=== PATIENT | male | born 1960 | race Caucasian/White ===

== ENCOUNTER 2023-05-15 17:50 | Emergency (ER) | payer OTHER, SELFPAY ==
[2023-05-15 17:57] VITALS: BP 179/116; PULSE 69; RESP 17; TEMP 36.7; O2SAT 97; BMI 36.0
--- NOTE | 2023-05-15 17:57 | XR_ITS ---
[facility] [place] [id number] Patient Name: ZULLY MAGALLON MRN: [id number] date: 1960 Sex: M Assigned Patient Location: ED.MAIN Current Patient Location: Accession/Order Number: [id number] Exam Date: 05/15/2023 18:00 Report Date: 05/15/2023 19:22 At the request of: SNEHAL SANTOS Procedure: XR ankle ERIKA min 3V STUDY: XR ankle ERIKA min 3V, [id number] HISTORY: Fall COMPARISON: None FINDINGS: Right ankle: Transverse oriented fracture of the most distal tip of the lateral malleolus which demonstrates 0.7 mm of distraction. No significant malalignment. There is adjacent soft tissue swelling. Small curvilinear calcification near the tip of the medial malleolus suspect for a lateral calcaneal avulsion fracture. No other acute fracture demonstrated. No lucency of the talar dome. Severe calcification/enthesopathy at the Achilles insertion. Small plantar calcaneal spur. Mild osteophytosis of the mid foot. Left ankle: Obliquely oriented fracture of the distal metadiaphysis of the left fibula at the level of the syndesmotic ligaments which demonstrates minimal lateral displacement of the distal fracture with respect to the proximal by approximately 1 mm. There is adjacent soft tissue swelling. No other acute fracture demonstrated. No lucent lesion of the talar dome. Mild Achilles enthesopathy and small plantar calcaneal spur. Mild osteoarthritis of the midfoot. IMPRESSION: 1. Minimally displaced Pollock type B fracture of the left distal fibula. 2. Minimally distracted Pollock type a fracture of the right distal fibula. 3. Small avulsion fracture of the medial aspect of the right calcaneus near the tip of the medial malleolus. Electronically authenticated by: LAUREN HOBSON Date: 05/15/2023 19:22
--- NOTE | 2023-05-15 17:58 | ED_ITS ---
HPI - Fall General Chief Complaint: Extremity Injury, Lower Stated Complaint: Lower Extremity Injury Time Seen by Provider: 05/15/23 17:53 History of Present Illness HPI Narrative: patient is a 62-year-old male who presents to the emergency department for the evaluation of injury to the bilateral ankles. Patient states around noon he was unloading a box from [place] truck [place] when he twisted his ankles. He reports pain in both ankles, he states the left ankle is much worse. He is able to bear some weight on the right ankle but is using a cane to help with walking on the left lower extremity. Most of his pain is in the left medial ankle and diffusely in the right medial ankle. He denies head injury, loss of consciousness, neck or back pain. No medications taken prior to arrival for symptoms. Related Data Previous Rx's Medication Instructions Recorded methocarbamol 750 mg tablet 750 mg PO TID PRN pain #20 tabs 05/15/23 ondansetron 4 mg disintegrating 4 mg PO Q6H PRN nausea and 05/15/23 tablet vomiting #12 tabs oxycodone-acetaminophen 5 mg-325 1 tab PO Q4H PRN pain #20 tabs 05/15/23 mg tablet (Percocet) Allergies Allergy/AdvReac Type Severity Reaction Status Date / Time No Known Drug Allergies Allergy Verified 05/15/23 17:55 Review of Systems ROS Constitutional Denies: fever or chills Ears, nose, mouth, and throat Denies: throat pain or neck pain Respiratory Denies: shortness of breath or cough Gastrointestinal Denies: nausea or vomiting Musculoskeletal Reports: extremity pain, extremity swelling and joint pain; Denies: back pain or neck pain Integumentary/Breast Denies: rash Neurological Denies: headache Hematologic/Lymphatic Denies: easy bruising PFSH PFSH Social History Smoking status: Current every day smoker Exam Narrative Exam Narrative: Gen.: Awake, alert, in no distress Head: Normocephalic, atraumatic ENT: Moist mucous membranes, no evidence of head, facial or dental injury. C- spine nontender Respiratory: No respiratory distress Extremities: diffuse moderate edema of the left ankle, minimal edema noted diffusely of the right ankle. Tenderness of the medial and anterior left ankle with no obvious deformity. No bony tenderness of the bilateral knees or proximal tibias. Normal flexion and extension of the toes of the bilateral feet with 2+ DP pulses bilaterally. Psych: Normal mood and affect Neuro: No focal neuro deficit Skin: Warm, dry, intact Constitutional Vital Signs, click to edit/add: Last Vital Signs Temp 98.1 F 05/15/23 17:57 Pulse 64 05/15/23 18:59 Resp 16 05/15/23 18:59 BP 150/84 H 05/15/23 18:59 Pulse Ox 96 05/15/23 18:59 O2 Del Method Room Air 05/15/23 18:59 Course Vital Signs Vital signs: Vital Signs Temperature 98.1 F 05/15/23 17:57 Pulse Rate 69 05/15/23 17:57 Respiratory Rate 17 05/15/23 17:57 Blood Pressure 179/116 H 05/15/23 17:57 Pulse Oximetry 97 05/15/23 17:57 Oxygen Delivery Method Room Air 05/15/23 17:57 Temperature 98.1 F 05/15/23 17:57 Pulse Rate 64 05/15/23 18:59 Respiratory Rate 16 05/15/23 18:59 Blood Pressure 150/84 H 05/15/23 18:59 Pulse Oximetry 96 05/15/23 18:59 Oxygen Delivery Method Room Air 05/15/23 18:59 MDM - Fall MDM Narrative Medical decision making narrative: x-rays of the bilateral ankles show that the patient has a small distal fibular avulsion fracture of the right ankle and calcaneus. He is placed in an Arcadio wrap and Aircast for this the avulsion appears to be of a bone spur. There is no large calcaneal fracture. left ankle shows a spiral distal fibular fracture. Mortise is intact. Patient was placed in a posterior splint with stirrup. He was encouraged not to bear any weight on the left lower extremity. He would like to try to go home and manages an outpatient with orthopedics/podiatry follow-up. He was given the option of admission for pain control and further evaluation, he would like to try to go home tonight. He was made aware that he can return to the Emergency Room at any time if he is not able to function. He was given prescriptions for both a walker and knee scooter. He is strongly encouraged to keep the ankles elevated, follow-up closely with podiatry and return to the Emergency Room if symptoms change or worsen. Medical Records Attestation: I reviewed the patient's medical records. Discharge Plan Discharge Chief Complaint: Extremity Injury, Lower Clinical Impression: Closed left fibular fracture, Closed avulsion fracture of distal end of right fibula, Bilateral ankle fractures, Acute bilateral ankle pain Patient Disposition: Home, Self-Care Time of Disposition Decision: 19:26 Condition: Good Prescriptions / Home Meds: New oxycodone-acetaminophen [Percocet] 5-325 mg tablet 1 tab PO Q4H PRN (Reason: pain) Qty: 20 0RF Rx Instructions: DX: S82.402A methocarbamol 750 mg tablet 750 mg PO TID PRN (Reason: pain) Qty: 20 0RF ondansetron 4 mg tablet,disintegrating 4 mg PO Q6H PRN (Reason: nausea and vomiting) Qty: 12 0RF Instructions: Ankle Fracture (ED), Avulsion Fracture (ED) Additional Instructions: Weightbearing as tolerated for your right ankle; Do not bear weight on your left ankle Elevate and ice the ankles, follow up with Dr. Murray Stand Alone Forms: Portal Instructions Referrals: Kendrick Murray DPM [Physician] - As soon as possible Shaikh Quijano MD [Primary Care Provider] - 1 week
[2023-05-15] MEDS: OXYCODONE HCL/ACETAMINOPHEN 5MG/325MG 1 TAB PO (18:14)
[2023-05-15 18:59] VITALS: BP 150/84; PULSE 64; RESP 16; O2SAT 96
[2023-05-15] MEDS: OXYCODONE HCL/ACETAMINOPHEN 5MG/325MG 2 TAB PO (19:41)
== END 2023-05-15 19:50 | disposition home or self-care (01) ==
PROVIDERS: Emergency Provider Emergency Medicine; PCP Internal Medicine
DX: S82.832A Other fracture of upper and lower end of left fibula, initial encounter for closed fracture (principal); S82.831A Other fracture of upper and lower end of right fibula, initial encounter for closed fracture; S92.001A Unspecified fracture of right calcaneus, initial encounter for closed fracture; M25.572 Pain in left ankle and joints of left foot; M25.571 Pain in right ankle and joints of right foot; F17.210 Nicotine dependence, cigarettes, uncomplicated; X50.1XXA Overexertion from prolonged static or awkward postures, initial encounter
CPT/HCPCS: 29515; 73610; 99283

== ENCOUNTER 2023-05-18 09:43 | Outpatient (OUT) | payer OTHER, SELFPAY ==
--- NOTE | 2023-05-18 | XR_ITS ---
[address] [address] Patient Name: ZULLY MAGALLON MRN: [id number] date: 1960 Sex: M Assigned Patient Location: [facility] Current Patient Location: RAD Accession/Order Number: [id number] Exam Date: 05/18/2023 10:00 Report Date: 05/18/2023 21:05 At the request of: ESTEBAN THAKUR Procedure: XR foot ERIKA min 3V EXAMINATION: XR foot ERIKA min 3V, XR ankle ERIKA min 3V HISTORY: BILATERAL FOOT PAIN COMPARISON: 05/15/2023 FINDINGS: RIGHT FINDINGS: BONES: No new fracture or dislocation. Again demonstrated is a transverse fracture across the distal tip of the fibula. Contour deformity of the tip of the medial malleolus consistent with a healing fracture. SOFT TISSUES: Negative. No visible soft tissue swelling. OTHER: Negative. LEFT FINDINGS: BONES: No new fracture or dislocation. Stable oblique fracture through the distal metaphysis of the fibula at the syndesmosis SOFT TISSUES: Negative. No visible soft tissue swelling. OTHER: Negative. XR/XR foot ERIKA min 3V IMPRESSION: RIGHT CONCLUSION: Stable fibular fracture LEFT CONCLUSION: Stable fibular fracture Electronically authenticated by: KOREY DOSHI Date: 05/18/2023 21:05
--- NOTE | 2023-05-18 | XR_ITS ---
[address] [address] Patient Name: ZULLY MAGALLON MRN: [id number] date: 1960 Sex: M Assigned Patient Location: [facility] Current Patient Location: RAD Accession/Order Number: [id number] Exam Date: 05/18/2023 09:45 Report Date: 05/18/2023 21:05 At the request of: ESTEBAN THAKUR Procedure: XR ankle ERIKA min 3V EXAMINATION: XR foot ERIKA min 3V, XR ankle ERIKA min 3V HISTORY: BILATERAL FOOT PAIN COMPARISON: 05/15/2023 FINDINGS: RIGHT FINDINGS: BONES: No new fracture or dislocation. Again demonstrated is a transverse fracture across the distal tip of the fibula. Contour deformity of the tip of the medial malleolus consistent with a healing fracture. SOFT TISSUES: Negative. No visible soft tissue swelling. OTHER: Negative. LEFT FINDINGS: BONES: No new fracture or dislocation. Stable oblique fracture through the distal metaphysis of the fibula at the syndesmosis SOFT TISSUES: Negative. No visible soft tissue swelling. OTHER: Negative. XR/XR ankle ERIKA min 3V IMPRESSION: RIGHT CONCLUSION: Stable fibular fracture LEFT CONCLUSION: Stable fibular fracture Electronically authenticated by: KOREY DOSHI Date: 05/18/2023 21:05
== END 2023-05-18 09:44 | disposition home or self-care (01) ==
LOC: RAD 09:43
PROVIDERS: PCP Internal Medicine; Visit Provider Podiatrist Foot & Ankle Surgery
DX: M25.572 Pain in left ankle and joints of left foot (principal); M25.571 Pain in right ankle and joints of right foot
CPT/HCPCS: 73610; 73630

== ENCOUNTER 2023-06-01 09:57 | Outpatient (OUT) | payer OTHER, SELFPAY ==
--- NOTE | 2023-06-01 | XR_ITS ---
The [address] [address] Patient Name: ZULLY MAGALLON MRN: [id number] date: 1960 Sex: M Assigned Patient Location: [facility] Current Patient Location: Accession/Order Number: [id number] Exam Date: 06/01/2023 10:11 Report Date: 06/02/2023 17:15 At the request of: ESTEBAN THAKUR Procedure: XR ankle ERIKA min 3V Exam: Radiographs: XR ankle ERIKA min 3V Reason for exam: BILATERAL ANKLE PAIN Comparison: Plain films dated 05/18/2023 XR/XR ankle ERIKA min 3V IMPRESSION: Acute nondisplaced distal right fibula metaphysis fracture with mild associated soft tissue swelling. Prominent Achilles calcaneal spur. Mild tibiotalar joint degenerative change. Remainder of the right ankle radiographs is unremarkable. Acute mildly displaced distal left fibula metaphysis fracture with associated soft tissue swelling. Small Achilles calcaneal spur. Mild tibiotalar joint degenerative change. Remainder of the left ankle radiographs is unremarkable. Electronically authenticated by: SARIKA ORTIZ Date: 06/02/2023 17:15
== END 2023-06-01 09:58 | disposition home or self-care (01) ==
LOC: RAD 09:57
PROVIDERS: PCP Internal Medicine; Visit Provider Podiatrist Foot & Ankle Surgery
DX: S82.65XA Nondisplaced fracture of lateral malleolus of left fibula, initial encounter for closed fracture (principal); M25.571 Pain in right ankle and joints of right foot
CPT/HCPCS: 73610

== ENCOUNTER 2023-06-22 09:39 | Outpatient (OUT) | payer OTHER, SELFPAY ==
--- NOTE | 2023-06-22 | XR_ITS ---
[facility] [place] [id number] Patient Name: ZULLY MAGALLON MRN: [id number] date: 1960 Sex: M Assigned Patient Location: [facility] Current Patient Location: Accession/Order Number: [id number] Exam Date: 06/22/2023 09:50 Report Date: 06/23/2023 00:32 At the request of: ESTEBAN THAKUR Procedure: XR ankle ERIKA min 3V EXAM: XR ankle ERIKA min 3V HISTORY: BILAT ANKLE PAIN COMPARISON: None. TECHNIQUE: 6 views of bilateral ankles FINDINGS: Healing fractures of the bilateral distal fibula is seen with mild callus formation seen involving the distal left fibula. No new fracture is seen. Joint alignment is normal. Joint spaces are preserved. Bilateral posterior calcaneal spur is seen. XR/XR ankle ERIKA min 3V IMPRESSION: Healing fractures of the bilateral distal fibula Electronically authenticated by: KALPESH VASQUEZ Date: 06/23/2023 00:32
== END 2023-06-22 09:40 | disposition home or self-care (01) ==
LOC: RAD 09:40
PROVIDERS: PCP Internal Medicine; Visit Provider Podiatrist Foot & Ankle Surgery
DX: M25.571 Pain in right ankle and joints of right foot (principal); M25.572 Pain in left ankle and joints of left foot
CPT/HCPCS: 73610

== ENCOUNTER 2023-07-28 09:52 | Outpatient (OUT) | payer OTHER, SELFPAY ==
--- NOTE | 2023-07-28 | XR_ITS ---
The [address] [address] Patient Name: ZULLY MAGALLON MRN: [id number] date: 1960 Sex: M Assigned Patient Location: RAD Current Patient Location: RAD Accession/Order Number: [id number] Exam Date: 07/28/2023 09:55 Report Date: 07/28/2023 11:06 At the request of: ESTEBAN THAKUR Procedure: XR ankle LT min 3V PROCEDURE: XR ankle LT min 3V HISTORY: LEFT ANKLE PAIN COMPARISON: XR ankle bilateral 06/22/2023 FINDINGS: BONES:Oblique fracture of the distal fibula extending cephalad from the level of the ankle joint. Mild callus formation along the margins. Intact ankle joint. SOFT TISSUES:No visible soft tissue swelling. EFFUSION:None visible. OTHER: Negative. XR/XR ankle LT min 3V IMPRESSION: 1. Stable, normal alignment of distal fibula fracture with evidence of early bone healing. Electronically authenticated by: CONCEPCION BORJA Date: 07/28/2023 11:06
--- OUTSIDE RECORDS SUMMARY | 2023-07-28 09:55 | XMS_ITS | CCD ---
Author Name Unknown Address [address] [facility] [address] [place] [address] Organization [facility] Care Team Providers Care Production Assistant Name Role Phone PHYSICIAN, DEFAULT Unavailable Unavailable PHYSICIAN, DEFAULT Unavailable Unavailable AMBURN, AUBREY Unavailable Unavailable PHYSICIAN, DEFAULT Unavailable Unavailable PHYSICIAN, DEFAULT Unavailable Unavailable AMBURN, AUBREY Unavailable Unavailable Olexa, Kenny Unavailable ODELL GAY Consulting Unavailable FAWWAD, PINA H Primary Care Unavailable OLEXA, KENNY Admitting Unavailable OLEXA, KENNY Attending Unavailable OLEXA, KENNY Consulting Unavailable VALERI QUINTERO Consulting Unavailable FAWWAD, PINA H Primary Care Unavailable OLEXA, KENNY Admitting Unavailable OLEXA, KENNY Attending Unavailable OLEXA, KENNY Consulting Unavailable FAWWAD, PINA H Admitting Unavailable FAWWAD, PINA H Attending Unavailable FAWWAD, PINA H Primary Care Unavailable CARLOSEBDR CONCEPCION SANCHEZ Consulting Unavailable FAWWAD, PINA H Consulting Unavailable OLEXA, KENNY Admitting Unavailable FAWWAD, PINA H Primary Care Unavailable DR CONCEPCION BORJA Consulting Unavailable OLEXA, KENNY Attending Unavailable OLEXA, KENNY Consulting Unavailable OLEXA, KENNY Consulting Unavailable FAWWAD, PINA H Primary Care Unavailable OLEXA, KENNY Admitting Unavailable OLEXA, KENNY Attending Unavailable FAWWAD, PINA H Admitting Unavailable DR CONCEPCION BORJA Consulting Unavailable FAWWAD, PINA H Attending Unavailable FAWWAD, PINA H Primary Care Unavailable FAWWAD, PINA H Consulting Unavailable ALEX TORRES Consulting Unavailable FAWWAD, PINA H Primary Care Unavailable OLEXA, KENNY Admitting Unavailable OLEXA, KENNY Attending Unavailable OLEXA, KENNY Consulting Unavailable MK DENTON Attending Unavailable FAWWAD, PINA Attending Unavailable Medications Current Medications Medication Drug Class(es) Dates Sig (Normalized) Sig (Original) acetaminophen 325 mg / HYDROcodone bitartrate 5 mg oral tablet (7 sources) Opioid Agonist Start: 07-14-2021 take 1 tablet by mouth every four hours as needed for pain HYDROcodone-Aceta minophen 5-325 MG 1 tablet as needed for pain Orally up to very 4 hrs for 5 days Aug, Active Start: 07-14-2021 Aspir-81 (7 sources) Aspir-81 Active atenolol 25 mg oral tablet (7 sources) beta-Adrenergic Katelynn take 1 tablet by mouth once daily Atenolol 25 MG 1 tablet Orally Once a day Active atorvastatin 40 mg oral tablet (7 sources) HMG-CoA Reductase Inhibitor take 1 tablet by mouth every twenty-four hours Atorvastatin Calcium 40 MG 1 tablet Orally Once a day Active Green Tea Extract (7 sources) Green Tea Active lisinopril 20 mg oral tablet (7 sources) Angiotensin Converting Enzyme Inhibitor take 1 tablet by mouth every twenty-four hours Lisinopril 20 MG 1 tablet Orally Once a day Active Multivitamin preparation (7 sources) Multivitamin Act salma [place] 3 (7 sources) [place] 3 Active omeprazole 20 mg delayed release oral capsule (7 sources) Proton Pump Inhibitor take 1 capsule by mouth once daily Omeprazole 20 MG 1 capsule 30 minutes before morning meal Orally Once a day Active Problems Active Problems Problem Classification Problem Date Documented Date Episodic/Chronic Coronary atherosclerosis and other heart disease (6 sources) Old myocardial infarction; Translations: [Atherosclerotic heart disease of saxman coronary artery without angina pectoris] Onset: 09-30-2021 Chronic Disorders of lipid metabolism (2 sources) Mixed hyperlipidemia; Translations: [Mixed hyperlipidemia] Onset: 02-01-2023 Chronic Esophageal disorders (1 source) Gastro-esophageal reflux disease without esophagitis; Translations: [GERD WITHOUT ESOPHAGITIS] Onset: 08-26-2021 Chronic Essential hypertension (3 sources) Essential (primary) hypertension; Translations: [ESSENTIAL PRIMARY HYPERTENSION] Onset: 09-30-2021 Chronic Osteoarthritis (16 sources) Osteoarthrosis of the carpometacarpal joint of the thumb; Translations: [Unilateral primary osteoarthritis of first carpometacarpal joint, left hand] Onset: 04-24-2021 Resolved: 07-29-2021 Chronic Other nervous system disorders (7 sources) Carpal tunnel syndrome of left wrist; Translations: [Carpal tunnel syndrome, left upper limb] Chronic Other nervous system disorders (7 sources) Carpal tunnel syndrome; Translations: [Carpal tunnel syndrome, unspecified upper limb] Chronic Other nervous system disorders (9 sources) Carpal tunnel syndrome, left upper limb; Translations: [Carpal tunnel syndrome of left wrist G56.02] Onset: 04-24-2021 Resolved: 09-15-2021 Chronic Other nervous system disorders (6 sources) Carpal tunnel syndrome of right wrist; Translations: [Carpal tunnel syndrome, right upper limb] Chronic Other nervous system disorders (7 sources) Carpal tunnel syndrome, right upper limb; Translations: [CARPAL TUNNEL SYND RIGHT UPPER LIMB] Onset: 07-01-2021 Resolved: 09-15-2021 Chronic Other non-traumatic joint disorders (4 sources) Pain in left knee; Translations: [PAIN IN LEFT KNEE] Onset: 02-02-2022 Episodic Substance-related disorders (7 sources) Nicotine dependence, cigarettes, uncomplicated; Translations: [Nicotine dependence, unspecified, uncomplicated] Onset: 04-17-2021 Chronic Unclassified (1 source) CONTACT W/AND (SUSP) EXPOS COVID-19; Translations: [CONTACT W/AND (SUSP) EXPOS COVID-19] Onset: 08-26-2021 Past or Other Problems Problem Classification Problem Date Documented Da te Episodic/Chronic Coronary atherosclerosis and other heart disease (1 source) Presence of coronary angioplasty implant and graft; Translations: [PRESENCE COR ANGPLSTY IMPLANT AND GRAFT] Onset: 09-30-2021 Episodic Other aftercare (2 sources) Encounter for removal of sutures Onset: 07-29-2021 Resolved: 09-15-2021 Episodic Other aftercare (1 source) care home (current) use of aspirin; Translations: [INTERMEDIATE CURRENT USE OF ASPIRIN] Onset: 08-26-2021 Episodic Other aftercare (1 source) Other fdc (current) drug therapy; Translations: [OTH ARC CUTTER PLASMA ARC CURRENT DRUG THERAPY] Onset: 08-26-2021 Episodic Other aftercare (1 source) care home (current) use of anticoagulants; Translations: [INTERMEDIATE CURRNT USE ANTICOAGULANTS] Onset: 07-20-2021 Episodic Other connective tissue disease (4 sources) Pain in left hand; Translations: [Left hand pain M79.642] Onset: 04-24-2021 Resolved: 07-29-2021 Episodic Other screening for suspected conditions (not mental disorders or infectious disease) (1 source) Encounter for screening for malignant neoplasm of respiratory organs; Translations: [ENC SCREEN MALIG NEOPLASM RESP ORGN] Onset: 04-23-2021 Episodic Residual codes; unclassified (4 sources) Other specified postprocedural states Onset: 07-14-2021 Resolved: 09-15-2021 Episodic Results Test Name Value Interpretation Reference Range Facil ity Office Visiton 02-01-2023 Follow-up visit [id number] Brenden Levine 1960 M Date Provider Department Center 02/01/2023 [id number] VAREL[facility] No family history on file Level of Service:80138 [place] OFFICE/OUTPATIENT ESTABLISHED MOD MDM 30-39 MIN Reason for Visit and Comments: Follow-up [778795] - 1 yr. Follow up Normal [facility] Covid-19 PCR ([facility])on SARS-CoV-2 (COVID-19) RNA VJ+probe Ql (Unsp spec) Not detected Normal NOT DETECTED [facility] Comment on above: Result Comment: This test is not yet approved or cleared by the [place] FDA. When there are no FDA-approved or cleared tests available, and other criteria are met, FDA can make tests available under an emergency access mechanism called an Emergency Use Authorization (EUA). The EUA for this test is supported by the [employer] of Health and Human Service's (HHS's) declaration that circumstances exist to justify the emergency use of in vitro diagnostics for the detection and/or diagnosis of the virus that causes COVID-19. This EUA will remain in effect (meaning this test can be used) for the duration of the COVID-19 declaration justifying emergency of IVDs, unless it is terminated or revoked by FDA (after which the test may no longer be used). When diagnostic testing is negative, the possibility of a false negative should be considered in the context of a patient's recent exposures and the presence of clinical signs and symptoms consistent with SARS-CoV-2. Performed By: #### [facility] #### [facility] [address] [place] [address] Dr. Nancy Adames CBC AUTO DIFFon 07-10-2021 BASO # 0.0 103/ul Normal 0.0-0.1 [facility] Comment on above: Performed By: #### C BC #### [facility] [address] [place] [address] Dr. Nancy Adames Basophils/100 WBC (Bld) 0.3 % Normal 0.2-2.0 [facility] Comment on above: Performed By: #### C BC #### [facility] [address] [place] [address] Dr. Nancy Adames EO # 0.2 103/ul Normal 0.0-0.7 [facility] Comment on above: Performed By: #### C BC #### [facility] [address] [place] [address] Dr. Nancy Adames Eosinophils/100 WBC (Bld) 2.3 % Normal 0.9-7.0 [facility] Comment on above: Performed By: #### C BC #### [facility] [address] [place] [address] Dr. Nancy Adames Erythrocyte distribution width (RBC) [Ratio] 12.8 % Normal 11.0-15.0 [facility] Comment on above: Performed By: #### C BC #### [facility] [address] [place] [address] Dr. Nancy Adames Hematocrit (Bld) [Volume fraction] 44.4 % Normal 42.0-54.0 [facility] Comment on above: Performed By: #### C BC #### [facility] [address] [place] [address] Dr. Nancy Adames Hemoglobin (Bld) [Mass/Vol] 14.0 g/dL Normal 14.0-18.0 [facility] Comment on above: Performed By: #### C BC #### [facility] [address] [place] [address] Dr. Nancy Adames IG # 0.02 10e3/ul Normal 0.00-0.03 [facility] Comment on above: Performed By: #### C BC #### [facility] [address] [place] [address] Dr. Nancy Adames IG % 0.3 % Normal 0.0-0.5 [facility] Comment on above: Performed By: #### C BC #### [facility] [address] [place] [address] Dr. Nancy Adames LYMPH # 2.9 103/ul Normal 1.2-3.8 [facility] Comment on above: Performed By: #### C BC #### [facility] [address] [place] [address] Dr. Nancy Adames Lymphocytes/100 WBC (Bld) 37.5 % Normal 20.5-60.0 [facility] Comment on above: Performed By: #### C BC #### [facility] [address] [place] [address] Dr. Nancy Adames MANUAL DIFF REQ NO Normal [facility] Comment on above: Performed By: #### C BC #### [facility] [address] [place] [address] Dr. Nancy Adames MCH (RBC) [Entitic mass] 27.6 pg Normal 25.9-34.0 [facility] Comment on above: Performed By: #### C BC #### [facility] [address] [place] [address] Dr. Nancy Adames MCHC (RBC) [Mass/Vol] 31.5 g/dL Normal 29.9-35.2 [facility] Comment on above: Performed By: #### C BC #### [facility] [address] [place] [address] Dr. Nancy Adames MCV (RBC) [Entitic vol] 87.6 fL Normal 80.0-94.0 [facility] Comment on above: Performed By: #### C BC #### [facility] [address] [place] [address] Dr. Nancy Adames MONO # 0.9 103/ul Critically high 0.3-0.8 [facility] Comment on above: Performed By: #### C BC #### [facility] [address] [place] [address] Dr. Nancy Adames Monocytes/100 WBC (Bld) 11.6 % Normal 1.7-12.0 [facility] Comment on above: Performed By: #### C BC #### [facility] [address] [place] [address] Dr. Nancy Adames NEUT # 3.8 103/ul Normal 1.4-6.5 [facility] Comment on above: Performed By: #### C BC #### [facility] [address] [place] [address] Dr. Nancy Adames Neutrophils/100 WBC (Bld) 48.0 % Normal 43.0-75.0 [facility] Comment on above: Performed By: #### C BC #### [facility] [address] [place] [address] Dr. Nancy Adames Platelet mean volume (Bld) [Entitic vol] 9.0 fL Critically low 9.5-13.5 [facility] Comment on above: Performed By: #### C BC #### [facility] [address] [place] [address] Dr. Nancy Adames PLT 246 103/ul Normal 150-450 [facility] Comment on above: Performed By: #### C BC #### [facility] [address] [place] [address] Dr. Nancy Adames RBC 5.07 106/ul Normal 4.70-6.10 [facility] Comment on above: Performed By: #### C BC #### [facility] [address] [place] [address] Dr. Nancy Adames WBC 7.8 103/ul Normal 4.0-11.0 [facility] Comment on above: Performed By: #### C BC #### [facility] [address] [place] [address] Dr. Nancy Adames [facility]on 06-19 SARS-CoV-2 (COVID-19) RNA VJ+probe Ql (Unsp spec) Not detected Normal NOT DETECTED [facility] Comment on above: Result Comment: This test is not yet approved or cleared by the [place] FDA. When there are no FDA-approved or cleared tests available, and other criteria are met, FDA can make tests available under an emergency access mechanism called an Emergency Use Authorization (EUA). The EUA for this test is supported by the [place] of Health and Human Service's (HHS's) declaration that circumstances exist to justify the emergency use of in vitro diagnostics for the detection and/or diagnosis of the virus that causes COVID-19. This EUA will remain in effect (meaning this test can be used) for the duration of the COVID-19 declaration justifying emergency of IVDs, unless it is terminated or revoked by FDA (after which the test may no longer be used). When diagnostic testing is negative, the possibility of a false negative should be considered in the context of a patient's recent exposures and the presence of clinical signs and symptoms consistent with SARS-CoV-2. Performed By: #### C VDTB #### [facility] [address] [place] [address] Dr. Nancy Adames PROF CHEM 8 (BAS METB)on Anion gap [Moles/Vol] 10.1 mmol/L Normal [facility] Comment on above: Performed By: #### B MP #### [facility] [address] [place] [address] Dr. Nancy Adames Calcium [Mass/Vol] 9.2 mg/dL Normal 8.4-10.2 [facility] Comment on above: Performed By: #### B MP #### [facility] [address] [place] [address] Dr. Nancy Adames Chloride [Moles/Vol] 104 mmol/L Normal 98-107 [facility] Comment on above: Performed By: #### B MP #### [facility] [address] [place] [address] Dr. Nancy Adames CO2 [Moles/Vol] 31.1 mmol/L Critically high 22.0-30.0 [facility] Comment on above: Performed By: #### B MP #### [facility] [address] [place] [address] Dr. Nancy Adames Creatinine [Mass/Vol] 0.91 mg/dL Normal 0.66-1.25 [facility] Comment on above: Performed By: #### B MP #### [facility] [address] [address] [address] Nancy Adames EGFR-AF WALLISIAN >60 Normal >=60 [facility] Comment on above: Performed By: #### B MP #### [facility] [address] [address] [address] Nancy Adames EGFR-NON AF WALLISIAN >60 Normal >=60 [facility] Comment on above: Performed By: #### B MP #### [facility] [address] [address] [address] Nancy Adames Glucose [Mass/Vol] 111 mg/dL Critically high 74-106 [facility] Comment on above: Performed By: #### B MP #### [facility] [address] [place] [address] Dr. Nancy Adames Potassium [Moles/Vol] 4.2 mmol/L Normal 3.4-5.0 [facility] Comment on above: Performed By: #### B MP #### [facility] [address] [place] [address] Dr. Nancy Adames Sodium [Moles/Vol] 141 mmol/L Normal 137-145 [facility] Comment on above: Performed By: #### B MP #### [facility] [address] [place] [address] Dr. Nancy Adames Urea nitrogen [Mass/Vol] 17.0 mg/dL Normal 9.0-20.0 [facility] Comment on above: Performed By: #### B MP #### [facility] [address] [place] [address] Dr. Nancy Adames Urea nitrogen/Creatinin e [Mass ratio] 18.7 mg/mg Normal [facility] Comment on above: Performed By: #### B MP #### [facility] [address] [place] [address] Dr. Nancy Adames PROTIMEon 07-10-2021 INR Coag (PPP) [Relative time] 1.02 {INR} Normal [facility] Comment on above: Performed By: #### P T, PTT #### [facility] [address] [place] [address] Dr. Nancy Adames INR GUIDELINES SEE BELOW Normal [facility] Comment on above: Result Comment: MICHAEL RED INR: 2.0 - 3.0 CONDITIONS NOT LISTED BELOW 2.5 - 3.5 FOR PROSTHETIC HEART VALVE REPLACEMENT 2.5 - 3.5 RECURRENT THROMBOSIS Performed By: #### P T, PTT #### [facility] [address] [place] [address] Dr. Nancy Adames PT Coag (PPP) [Time] 11.0 s Normal 9.0-11.6 [facility] Comment on above: Performed By: #### P T, PTT #### [facility] [address] [place] [address] Dr. Nancy Adames PTTon 07-10-2021 aPTT Coag (Bld) [Time] 27.4 s Normal 22.3-36.2 [facility] Comment on above: Performed By: #### P T, PTT #### [facility] [address] [place] [address] LUNG CANCER SCREENINGon 0 04-17-2021 CT LUNG CANCER SCREENING EXAMINATION: CT LUNG CANCER SCREENING HISTORY: Screening for malignant neoplasm of respiratory tract COMPARISON: No relevant comparison available. TECHNIQUE: Axial, Coronal, and Sagittal images were created without the administration of IV contrast material. Dose reduction techniques were achieved by using automated exposure control and/or adjustment of mA and/or kV according to patient size and/or use of iterative reconstruction technique. FINDINGS: LUNGS: 8 mm calcified granuloma within right lung base. PLEURA: No mass, effusion, or pneumothorax. VASCULATURE: No abnormality. GENE: No mass or pathologic adenopathy. MEDIASTINUM: No mass or pathologic adenopathy. CARDIAC: Marked atherosclerotic disease involving the left anterior descending coronary artery. AORTA: No aneurysm or dissection. CHEST WALL: No mass or axillary adenopathy BONES: No bone lesion or fracture. LIMITED ABDOMEN: No suspicious findings. Limited images of the upper abdomen. OTHER: Negative. IMPRESSION: 1. LUNG SCREENING: Lung-RADS Category 2- Benign Appearance or Behavior. Nodules with a very low likelihood of becoming a clinically active cancer due to size or lack of growth. 2. Continue annual screening with LDCT in 12 months. 2. Marked atherosclerotic disease of the left anterior descending coronary artery. Electronically authenticated by: CONCEPCION BORJA Date: 2021-04-17 17:09 Normal [facility] Vital Signs Date Time Vital Sign Value Performing Clinician Elton toro 09-15-2021 14:15-0500 Body height 160.02 cm Kenny Olexa Other [facility] Other 09-15-2021 14:15-0500 Body mass index (BMI) [Ratio] 43.4 kg/m2 Kenny Olexa Other [facility] Other 09-15-2021 14:15-0500 Body weight 111.13 kg Kenny Olexa Other [facility] Other 07-01-2021 14:30-0500 Body height 160.02 cm Kenny Olexa Other [facility] Other 07-01-2021 14:30-0500 Body mass index (BMI) [Ratio] 43.4 kg/m2 Kenny Olexa Other [facility] Other 07-01-2021 14:30-0500 Body weight 111.13 kg Kenny Olexa Other [facility] Other 04-24-2021 15:30-0400 Body height 160.02 cm Kenny Olexa Other [facility] Other 04-24-2021 15:30-0400 Body mass index (BMI) [Ratio] 43.4 kg/m2 Kenny Olexa Other [facility] Other 04-24-2021 15:30-0400 Body weight 111.13 kg Kenny Olexa Other [facility] Other Encounters Encounter Date Encounter Type Care Provider Facility Start: 07-07-2023 End: 07-07-2023 ambulatory SHAIKH DARREN Not Available Start: 02-01-2023 End[facility]: 02-02-[facility]22 End: 02-03-2022 ambulatory SHAIKH Shaheen BANKS Facility:[facility] Start: 09-15-2021 End: 09-15-2021 ambulatory Kenny Ibanezxa Other [facility] Other Start: 09-15-2021 Postop follow up vis it related to original px Kenny Olexa [facility] Start: 08-28-2021 End: 08-28-2021 ambulatory VALERI LONG [facility] Other Start: 08-28-2021 Telephone encounter Kenny Shamarxa [facility] Start: 08-26-2021 Encounter for preprocedural laboratory examination KENNY IBANEZXA [facility] Start: 08-25-2021 End: 08-26-2021 ambulatory KENNY SHAMARXA Facility:[facility] Start: 08-25-2021 End: 08-26-2021 Encounter for preprocedural laboratory examination KENNY IBANEZXA Facility:[facility] Start: 08-06-2021 End: 08-06-2021 ambulatory Kenny Olexa Other [facility] Other Start: 08-06-2021 Telephone encounter Kenny Ibanezxa [facility] Start: 07-29-2021 End: 07-29-2021 ambulatory Kenny Olexa Other [facility] Other Start: 07-29-2021 Postop follow up vis it related to original px Kenny Olexa [facility] Start: 07-20-2021 Encounter for other preprocedural examination KENNY IBANEZXA [facility] Start: 07-20-2021 Encounter for preprocedural cardiovascular examination KENNY IBANEZSUSHILA [facility] Start: 07-15-2021 End: 07-15-2021 ambulatory ODELL GAY Facility:[facility] Start: 07-14-2021 End: 07-14-2021 ambulatory Kenny Olexa Other [facility] Other Start: 07-14-2021 Telephone encounter Kenny Olexa [facility] Start: 07-10-2021 End: 07-11-2021 ambulatory ALEX TORRES Facility:[facility] Start: 07-01-2021 End: 07-01-2021 ambulatory Kenny Olexa Other [facility] Other Start: 07-01-2021 Encounter for other preprocedural examination Kenny Olexa [facility] Start: 07-01-2021 Office outpatient vi sit 25 minutes Kenny Olexa [facility] Start: 04-24-2021 End: 04-25-2021 ambulatory KENNY OLEXA Facility:[facility] Start: 04-24-2021 Encounter for other preprocedural examination Kenny Olexa [facility] Start: 04-24-2021 Office outpatient ne w 45 minutes Kenny Olexa [facility] Start: 04-17-2021 End: 04-18-2021 ambulatory PINA H DARREN Facility:[facility] Start: 01-04-2018 End: 01-05-2018 Ambulatory DEFAULT PHYSICIAN Facility:[facility] Start: 12-09-2017 End: 12-10-2017 Ambulatory DEFAULT PHYSICIAN Facility:[facility] Payers Date Payer Category Payer Private Health Insurance [id number] 1960 Unknown [id number] 1960 Unknown [id number] 1960 Unknown [id number] 2.16.84 [id number] 1960 Unknown [id number] 2.16.84 [id number] 1960 Unknown [id number] 2.16.84 [id number] 1960 Unknown [id number] 2.16.84 [id number] 1960 Unknown [id number] 2.16.84 [id number] 1960 Unknown [id number] Unknown Social History Date Type Detail Facility Sex Assigned At [facility] Other Clinical Notes 04-24-2021 to 02-01-2023 Note Date & Type Note Facility 02-01-2023 Note [facility]iology [facility] No te Subjective Brenden Levine is a 62 y.o. year old male patient past medical history of coronary artery disease status post PCI to mid LAD in 2006, hyperlipidemia, hypertension, and tobacco dependence seen in follow-up. Patient Active Problem List Diagnosis Tobacco dependence syndrome Dyspnea Coronary arteriosclerosis No family history on file. Social History Tobacco Use Smoking status: Every Day Types: Cigarettes Smokeless tobacco: Never HPI Mr Levine is a 22 yo man with history of: 1. CAD s/p NSTEMI in 2006, at that time he had stenting of the LAD. 2. Hypertension. 3. Hypercholesterolemia on atorvastatin and ezetimibe. 4. Active smoker. Update: 12/15/2017 He has no chest pain. He has upper abdomen and lower chest discomfort when he laughs hard or moves to the side. He gets dyspnea on exertion. This is moderate at moderate exertion. Relived by rest. He gets fatigue very easily. He has been ascribing the symptoms to overweight. He has to stop while doing yard work. He has no claudication. Update 01/25/2018: He is seen in follow up. He has been well with no change in symptoms. His dyspnea is at baseline. He has not been exerting himself. Update 02/01/2019: He is seen in follow-up. He has no symptoms of chest pain or shortness of breath. He has mild leg swelling. He has been having issues of knee and back pain. He has been doing well since last visit. At last visit I stopped plavix given negative cardiac testing, and 11 years s/p stenting. Update 02/02/2022: He is seen in follow-up. He has been doing well. He has no angina no heart failure symptoms. No claudication. No palpitations. He has knee issues for which she is getting an x-ray. Otherwise he has been doing well with no issues. Blood testing 07/10/2021: Hemoglobin 14, platelets 246, 0.2, BUN 17, creatinine 0.91. ECG 07/10/2021: Sinus rhythm. Update: 02/01/2023 Reports he is doing well without concerns Still smoking a pack a day Blood pressure runs in the 120s over 70s Denies chest pain, palpitation, or dyspnea on exertion Review of Systems Cardiovascular: Negative for chest pain, dyspnea on exertion, irregular heartbeat, leg swelling, near-syncope, orthopnea, palpitations, paroxysmal nocturnal dyspnea and syncope. Objective Visit Vitals BP (!) 154/93 (BP Location: Right arm, Patient Position: Sitting, BP Cuff Size: Large adult) Pulse 60 Ht 1.702 m (5' 7 ) Wt 107 kg (235 lb 12.8 oz) SpO2 97% BMI 36.93 kg/m??? Smoking Status Every Day BSA 2.25 m??? Physical Exam General: Awake, alert, NAD Pulm: Limited air movement bilaterally Cards: Regular rate and rhythm, S1, S2. No S3 or S4 gallop. Murmur: none Abd: Soft, Nontender, physiologic bowel sounds are present Extr: Lower extremity edema: None. Skin: warm, dry, well perfused Neuro: A&Ox3, No gross deficits Allergies No Known Allergies Medications Current Outpatient Medications: aspirin 81 mg EC tablet, Take 1 tablet by mouth in the morning., Disp: , Rfl: atenolol (Tenormin) 25 mg tablet, TAKE 1 TABLET BY MOUTH DAILY, Disp: 90 tablet, Rfl: 3 atorvastatin (Lipitor) 40 mg tablet, TAKE 1 TABLET BY MOUTH DAILY, Disp: 90 tablet, Rfl: 0 lisinopril 20 mg tablet, Take 20 mg by mouth in the morning., Disp: , Rfl: omeprazole (PriLOSEC) [address] capsule, Take 20 mg by mouth in the morning., Disp: , Rfl: Recent Labs will bring labs obtained through his employer Imaging and other tests Echocardiogram 01/04/2018: Global left ventricular systolic function is normal (Visually estimated EF 60%). No regional wall motion abnormality. Normal diastolic function. The right ventricle is mildly enlarged. No significant valvular abnormalities Stress test 01/04/2018: Treadmill 8 min 18 sec, No ischemia by ECG or myocardial perfusion. Normal LV function. No TID. Coronary angiography: 01/24/2007 Severe single-vessel coronary artery disease Successful angioplasty and stent placement in left anterior descending coronary artery Normal left ventricular ejection fraction Mildly elevated left ventricular end-diastolic pressure Recommendations Patient will be maintained on aspirin and Plavix indefinitely Assessment Diagnoses and all orders for this visit: Coronary artery disease involving saxman coronary artery of saxman heart without angina pectoris Hx of non-ST elevation myocardial infarction (NSTEMI) Essential hypertension Mixed hyperlipidemia Tobacco dependence Plan 1. Coronary artery disease -Stable without anginal symptoms. He is maintained on aspirin 81 mg, atorvastatin 40 mg, and atenolol 25 mg. He will bring his most recent labs obtained through his employer later on today. 2. Hypertension - Reports good control elsewhere. It is elevated here today, reports he smoked prior to coming in for his visit. He will presents later today for a recheck and bring his home monitor for cor (more content not included)... [facility] 02-03-2022 Note PROCEDURE: XR KNEE L T 3V HISTORY: Pain of left knee joint inferior to patella, chronic; no known injury COMPARISON: XR knee left 06/26/2019 FINDINGS: BONES:Small degenerative osteophytes along the articular margins of all 3 compartments. No fracture, dislocation, or significant joint space narrowing. SOFT TISSUES:No visible soft tissue swelling. EFFUSION:None visible. OTHER: Negative. IMPRESSION: 1. Mild degenerative joint disease which has slightly progressed since prior study and may contribute to patient's symptoms. 2. No acute abnormality. Electronically authenticated by: CONCEPCION BORJA Date: 2022-02-03 16:13 [facility] 09-15-2021 Evaluation note Encounter Date Diagnosis Assessment Notes Aug, Carpal tunnel syndrome of left wrist (ICD-10 - G56.02) Aug, Carpal tunnel syndrome, right (ICD-10 - G56.01) Aug, Other specified postprocedural states (ICD-10 - Z98.890) Patient is progressing well from surgery. Sutures removed from right hand under clean conditions. May allow incision to get wet in clean running water. May apply neosporin/gent le moisturizer to dry areas of incision. Slowly progress activity as tolerated. Call with questions/conc erns. Aug, Encounter for removal of sutures (ICD-10 - Z48.02) [facility] Other 02-10-2022 NoteOPERATIVE NOTE ADDENDUM PROCEDURE: The addendum is that it is a right carpal tunnel. The note was dictated, but needs right carpal tunnel added as the name of the procedure.[id number]* Encounter Date Diagnosis Assessment Notes Treatment Notes Treatment Clinical Notes Aug, Other specified postprocedural states (ICD-10 - Z98.890) [facility] Other 01-11-2022 Evaluation note* Encounter Date Diagnosis Assessment Notes Treatment Notes Treatment Clinical Notes Jul, Primary osteoarthrit is of first carpometacarpal joint of left hand (ICD-10 - M18.12) Jul, Carpal tunnel syndro me of left wrist (ICD-10 - G56.02) Instructed on application of Neosporin to incision to help dryness. Sutures removed today under sterile conditions. Patient tolerated well with no adverse reactions. May allow incision to get wet in clean running water, no kearns/parks/strea ms. Instructed patient to progress activity as tolerated. Jul, Left hand pain (ICD- 10 - M79.642) Jul, Carpal tunnel syndrome, right (ICD-10 - G56.01) Discussed with patient to call when he would like to proceed with carpal tunnel surgery Jul, Other specified postprocedural states (ICD-10 - Z98.890) Jul, Encounter for remova l of sutures (ICD-10 - Z48.02) [facility] Other 12-27-2021 Evaluation note* Encounter Date Diagnosis Assessment Notes Treatment Notes Treatment Clinical Notes Jun, Other specified postprocedural states (ICD-10 - Z98.890) [facility] Other 12-14-2021 Evaluation note* Encounter Date Diagnosis Assessment Notes Treatment Notes Treatment Clinical Notes Jun, Primary osteoarthritis of first carpometacarpal joint of left hand (ICD-10 - M18.12) Jun, Carpal tunnel syndrome of left wrist (ICD-10 - G56.02) We will plan on left carpal tunnel release with left thumb CMC cortisone injection.The patient has stated that they do not want to live in this condition any longer and would like to proceed with surgery. I feel that this is a reasonable option at this point and we may be able to improve function and decrease pain and numbness. We have discussed the process and procedure in detail including not eating or drinking 8 hrs prior to surgery, the need for anesthesia and associated respiratory, cardiac, and patient position complications (such as nerve traction and compression). We discussed that incisional pain and continued neurologic symptoms can persist for months after surgery. The complications of infection, persistent symptoms, sensory and motor nerve injury are well known problems that can require repeat surgeries. Patient is fully aware that this wrist may never be the same. We discussed that our team will do everything we can to help achieve the best outcome. Will also inject the left thumb cmc joint during surgery.Patient states they are interested in planning surgery and will call when ready to schedule. Jun, Left hand pain (ICD-10 - M79.642) Jun, Pre-op exam (ICD-10 - Z01.818) Jun, Carpal tunnel syndrome, right (ICD-10 - G56.01) [facility] Other 10-08-2021 NotePROCEDURE: XR HAND LT MIN 3V HISTORY: Idiopathic osteoarthritis , chronic left first carpal-metacarpal joint pain COMPARISON: None. FINDINGS: BONES:Complete loss of the joint space and development of degenerative osteophytes along the articular margins of the trapezial-first metacarpal joint. No fracture or dislocation. SOFT TISSUES:No visible soft tissue swelling. EFFUSION:None visible. OTHER: Negative. IMPRESSION: 1. Marked degenerative joint disease of the first carpal-metacarpal joint favoring osteoarthritis. 2. No acute bone abnormality. Electronically authenticated by: CONCEPCION BORJA Date: 2021-04-25 07:26[facility]10-07-2021 Evaluation note* Encounter Date Diagnosis Assessment Notes Treatment Notes Treatment Clinical Notes Apr, Primary osteoarthritis of first carpometacarpal joint of left hand (ICD-10 - M18.12) Apr, Carpal tunnel syndrome of left wrist (ICD-10 - G56.02) We will plan on left carpal tunnel release.The patient has stated that they do not want to live in this condition any longer and would like to proceed with surgery. I feel that this is a reasonable option at this point and we may be able to improve function and decrease pain and numbness. We have discussed the process and procedure in detail including not eating or drinking 8 hrs prior to surgery, the need for anesthesia and associated respiratory, cardiac, and patient position complications (such as nerve traction and compression). We discussed that incisional pain and continued neurologic symptoms can persist for months after surgery. The complications of infection, persistent symptoms, sensory and motor nerve injury are well known problems that can require repeat surgeries. Patient is fully aware that this wrist may never be the same. We discussed that our team will do everything we can to help achieve the best outcome. Will also inject the left thumb cmc joint during surgery.Patient states they are interested in planning surgery and will call when ready to schedule. Apr, Left hand pain (ICD-10 - M79.642) Apr, Pre-op exam (ICD-10 - Z01.818) [facility] Other Evaluation noteNo [employer] Other History general Narrative - Reported* Type Description Date Medical History acid reflux Medical History high blood pressure Surgical History heart stent Hospitalization History See Above [facility] Other History general Narrative - ReportedNoAnke Other History general Narrative - Reported* Type Description Date Medical History acid reflux Medical History high blood pressure Surgical History heart stent Surgical History right carpal tunnel release Surgical History left carpal tunnel release Hospitalization History See Above [facility] Other Summary Purpose Family History No Family History Records FoundNo Family History Records FoundNo Family History Records FoundNo Family History Records Found Advance Directives No Advanced Directives Records FoundNo Advanced Directives Records FoundNo Advanced Directives Records FoundNo Advanced Directives Records Found Additional Source Comments (unrecognized sect ion and content) No Status Records FoundNo Status Records FoundNo Status Records FoundNo Status Records Found INFORMATION SOURCE (unrecogn ized section and content) DATE CREATED AUTHOR 01/05/2018 [facility] DATE CREATED AUTHOR AUTHOR'S ORGANIZ ATION 02/06/2022 [facility] DATE CREATED AUTHOR AUTHOR'S ORGANIZ ATION 02/01/2023 [facility] DATE CREATED AUTHOR AUTHOR'S ORGANIZ ATION 07/09/2023 [facility] EPIC REASON FOR VISIT (unrecogniz ed section and content) Bilateral Hand Painpost op s criptspost op scriptsRecheck Left WristBilateral Hand PainNo InformationRecheck Right Hand FOR RECORDS PERTAINING TO PATIENTS WHO ARE OR HAVE BEEN ENROLLED IN A CHEMICAL DEPENDENCY/SUBSTANCEABUSE PROGRAM, SOME INFORMATION MAY BE OMITTED. This clinical summary was aggregated from multiple sources. Caution should be exercised in using it in the provision of clinical care. This summary normalizes information from multiple sources, and as a consequence, information in this document may materially change the coding, format and clinical context of patient data. In addition, data may be omitted in some cases. CLINICAL DECISIONS SHOULD BE BASED ON THE PRIMARY CLINICAL RECORDS. [employer] provides no warranty or guarantee of the accuracy or completeness of information in this document.
== END 2023-07-28 09:53 | disposition home or self-care (01) ==
LOC: RAD 09:52
PROVIDERS: PCP Internal Medicine; Visit Provider Podiatrist Foot & Ankle Surgery
DX: M25.572 Pain in left ankle and joints of left foot (principal); S82.832D Other fracture of upper and lower end of left fibula, subsequent encounter for closed fracture with routine healing
CPT/HCPCS: 73610

== ENCOUNTER 2023-09-08 10:25 | Outpatient (OUT) | payer OTHER, SELFPAY ==
--- NOTE | 2023-09-08 | XR_ITS ---
The [address] [address] Patient Name: ZULLY MAGALLON MRN: [id number] date: 1960 Sex: M Assigned Patient Location: Current Patient Location: Accession/Order Number: [id number] Exam Date: 09/08/2023 10:30 Report Date: 09/09/2023 23:19 At the request of: ESTEBAN THAKUR Procedure: XR ankle LT min 3V EXAM: XR ankle LT min 3V HISTORY: LEFT ANKLE PAIN COMPARISON: Multiple prior studies 07/28/2023 and earlier. TECHNIQUE: AP lateral oblique x-ray left ankle. FINDINGS: Again noted is an oblique fracture distal fibula extending to the level of the mortise medially. Mild displacement unchanged. Fracture margin poorly defined superiorly with mild callus stable. Fracture remains well-defined along its inferior medial aspect without increasing callus. Slight sclerosis developing in the adjacent fibula medially. Appearance suggestive of nonunion / delayed union. No new fracture seen. Symmetric mortise unchanged. No increasing joint effusion. Calcaneal spurs again noted. XR/XR ankle LT min 3V IMPRESSION: Mildly displaced fracture distal fibula unchanged in appearance without any increasing callus formation or significant progressive healing. Fracture initially noted 05/15/2023. Appearance suggests nonunion/delayed union. Electronically authenticated by: MOIRA GALDAMEZ Date: 09/09/2023 23:19
--- OUTSIDE RECORDS SUMMARY | 2023-09-08 10:28 | XMS_ITS | CCD ---
Author Name Unknown Address [address] [facility] [address] [place] [address] Organization [facility] Care Team Providers Care Enforcement Officer Name Role Phone PHYSICIAN, DEFAULT Unavailable Unavailable PHYSICIAN, DEFAULT Unavailable Unavailable AMBURN, AUBREY Unavailable Unavailable PHYSICIAN, DEFAULT Unavailable Unavailable PHYSICIAN, DEFAULT Unavailable Unavailable AMBURN, AUBREY Unavailable Unavailable Olexa, Kenny Unavailable ODELL GAY Consulting Unavailable FAWWAD, PIAN H Primary Care Unavailable OLEXA, KENNY Admitting [...] Multivitamin preparation (7 sources) Multivitamin Act salma Robards 3 (7 sources) Robards 3 Active omeprazole 20 mg delayed release oral capsule (7 sources) Proton Pump Inhibitor take 1 capsule by mouth once daily Omeprazole 20 MG 1 capsule 30 minutes before morning meal Orally Once a day Active Problems Active Problems Problem Classification Problem Date Documented Date Episodic/Chronic Coronary atherosclerosis and other heart disease (6 sources) Old myocardial infarction; Translations: [Atherosclerotic heart disease of [place] coronary artery without angina pectoris] Onset: 09-30-2021 [...] Resolved: 09-15-2021 Episodic Other aftercare (1 source) intermission coordinator (current) use of aspirin; Translations: [FPC CURRENT USE OF ASPIRIN] Onset: 08-26-2021 Episodic Other aftercare (1 source) Other halfway (current) drug therapy; Translations: [OTH [facility] CURRENT DRUG THERAPY] Onset: 08-26-2021 Episodic Other aftercare (1 source) long-term (current) use of anticoagulants; Translations: [[facility] CURRNT USE ANTICOAGULANTS] Onset: 07-20-2021 Episodic Other [...] Facil ity Office Visiton 02-01-2023 Follow-up visit [id number] Brenden Levine 1960 M Date Provider Department Center 02/01/2023 [id number] VARELA [facility] No family history on file Level of Service:71092 DC OFFICE/OUTPATIENT ESTABLISHED MOD MDM 30-39 MIN Reason for Visit and Comments: Follow-up [547722] - [facility] ([facility])on SARS-CoV-2 (COVID-19) RNA VJ+probe Ql (Unsp spec) Not detected Normal NOT DETECTED The [facility] Comment on above: Result Comment: This test is not yet approved or cleared by the [place] FDA. When there are no FDA-approved or cleared tests available, and other criteria are met, FDA can make tests available under an emergency access mechanism called an Emergency Use Authorization (EUA). The EUA for this test is supported by the [place] of Health and Human Service's (HHS's) declaration [...] consistent with SARS-CoV-2. Performed By: #### [facility] #### [facility] [address] [place] [address] Dr. Nancy Adames CBC AUTO DIFFon 07-10-2021 BASO # 0.0 103/ul Normal 0.0-0.1 [facility] Comment on above: Performed By: #### C BC #### [facility] [address] [place] [address] Dr. Nancy Adames Basophils/100 WBC (Bld) 0.3 % Normal 0.2-2.0 [facility] Comment on above: Performed By: #### C BC #### [facility] [address] [place] [address] Dr. Nancy Adames EO # 0.2 103/ul Normal 0.0-0.7 [facility] Comment on above: Performed By: #### C BC #### [facility] [address] [place] [address] Dr. Nancy Adames Eosinophils/100 WBC (Bld) 2.3 % Normal 0.9-7.0 [facility] Comment on above: Performed By: #### C BC #### [facility] [address] [place] [address] Dr. Nancy Adames Erythrocyte distribution width (RBC) [Ratio] 12.8 % Normal 11.0-15.0 [facility] Comment on above: Performed By: #### C BC #### [facility] [address] [place] [address] Dr. Nancy Adames Hematocrit (Bld) [Volume fraction] 44.4 % Normal 42.0-54.0 [facility] Comment on above: Performed By: #### C BC #### [facility] [address] [place] [address] Dr. Nancy Adames Hemoglobin (Bld) [Mass/Vol] 14.0 g/dL Normal 14.0-18.0 [facility] Comment on above: Performed By: #### C BC #### [facility] [address] [place] [address] Dr. Nancy Adames IG # 0.02 10e3/ul Normal 0.00-0.03 [facility] Comment on above: Performed By: #### C BC #### [facility] [address] [place] [address] Dr. Nancy Adames IG % 0.3 % Normal 0.0-0.5 [facility] Comment on above: Performed By: #### C BC #### [facility] [address] [place] [address] Dr. Nancy Adames LYMPH # 2.9 103/ul Normal 1.2-3.8 [facility] Comment on above: Performed By: #### C BC #### [facility] [address] [place] [address] Dr. Nancy Adames Lymphocytes/100 WBC (Bld) 37.5 % Normal 20.5-60.0 [facility] Comment on above: Performed By: #### C BC #### [facility] [address] [place] [address] Dr. Nancy Adames MANUAL DIFF REQ NO Normal The [facility] Comment on above: Performed By: #### C BC #### [facility] [address] [place] [address] Dr. Nancy Adames MCH (RBC) [Entitic mass] 27.6 pg Normal 25.9-34.0 [facility] Comment on above: Performed By: #### C BC #### [facility] [address] [place] [address] Dr. Nancy Adames MCHC (RBC) [Mass/Vol] 31.5 g/dL Normal 29.9-35.2 [facility] Comment on above: Performed By: #### C BC #### [facility] [address] [place] [address] Dr. Nancy Adames MCV (RBC) [Entitic vol] 87.6 fL Normal 80.0-94.0 [facility] Comment on above: Performed By: #### C BC #### [facility] [address] [place] [address] Dr. Nancy Adames MONO # 0.9 103/ul Critically high 0.3-0.8 The [facility] Comment on above: Performed By: #### C BC #### [facility] [address] [place] [address] Dr. Nancy Adames Monocytes/100 WBC (Bld) 11.6 % Normal 1.7-12.0 [facility] Comment on above: Performed By: #### C BC #### [facility] [address] [place] [address] Dr. Nancy Adames NEUT # 3.8 103/ul Normal 1.4-6.5 [facility] Comment on above: Performed By: #### C BC #### [facility] [address] [place] [address] Dr. Nancy Adames Neutrophils/100 WBC (Bld) 48.0 % Normal 43.0-75.0 [facility] Comment on above: Performed By: #### C BC #### [facility] [address] [place] [address] Dr. Nancy Adames Platelet mean volume (Bld) [Entitic vol] 9.0 fL Critically low 9.5-13.5 [facility] Comment on above: Performed By: #### C BC #### [facility] [address] [place] [address] Dr. Nancy Adames PLT 246 103/ul Normal 150-450 [facility] Comment on above: Performed By: #### C BC #### [facility] [address] [place] [address] Dr. Nancy Adames RBC 5.07 106/ul Normal 4.70-6.10 [facility] Comment on above: Performed By: #### C BC #### [facility] [address] [place] [address] Dr. Nancy Adames WBC 7.8 103/ul Normal 4.0-11.0 [facility] Comment on above: Performed By: #### C BC #### [facility] [address] [place] [address] Dr. Nancy Adames [facility]-19 SARS-CoV-2 (COVID-19) RNA VJ+probe Ql (Unsp spec) Not detected Normal NOT DETECTED The [facility] Comment on above: Result Comment: This test is not yet approved or cleared by the [place] FDA. When there are no FDA-approved or cleared tests available, and other criteria are met, FDA can make tests available under an emergency access mechanism called an Emergency Use Authorization (EUA). The EUA for this test is supported by the [place] of Health and Human Service's (HHS's) declaration [...] SARS-CoV-2. Performed By: #### C VDTB #### [facility] [address] [place] [address] Dr. Nancy Adames PROF CHEM 8 (BAS METB)on Anion gap [Moles/Vol] 10.1 mmol/L Normal [facility] Comment on above: Performed By: #### B MP #### [facility] [address] [place] [address] Dr. Nancy Adames Calcium [Mass/Vol] 9.2 mg/dL Normal 8.4-10.2 [facility] Comment on above: Performed By: #### B MP #### [facility] [address] [place] [address] Dr. Nancy Adames Chloride [Moles/Vol] 104 mmol/L Normal 98-107 [facility] Comment on above: Performed By: #### B MP #### [facility] [address] [place] [address] Dr. Nancy Adames CO2 [Moles/Vol] 31.1 mmol/L Critically high 22.0-30.0 [facility] Comment on above: Performed By: #### B MP #### [facility] [address] [place] [address] Dr. Nancy Adames Creatinine [Mass/Vol] 0.91 mg/dL Normal 0.66-1.25 [facility] Comment on above: Performed By: #### B MP #### [facility] [address] [address] [address] Nancy Adames EGFR-AF LITHUANIAN >60 Normal >=60 [facility] Comment on above: Performed By: #### B MP #### [facility] [address] [address] [address] Nancy Adames EGFR-NON AF LITHUANIAN >60 Normal >=60 [facility] Comment on above: Performed By: #### B MP #### [facility] [address] [address] [address] Nancy Adames Glucose [Mass/Vol] 111 mg/dL Critically high 74-106 [facility] Comment on above: Performed By: #### B MP #### [facility] [address] [place] [address] Dr. Nancy Adames Potassium [Moles/Vol] 4.2 mmol/L Normal 3.4-5.0 [facility] Comment on above: Performed By: #### B MP #### [facility] [address] [place] [address] Dr. Nacny Adames Sodium [Moles/Vol] 141 mmol/L Normal 137-145 [facility] Comment on above: Performed By: #### B MP #### [facility] [address] [place] [address] Dr. Nancy Adames Urea nitrogen [Mass/Vol] 17.0 mg/dL Normal 9.0-20.0 [facility] Comment on above: Performed By: #### B MP #### [facility] [address] [place] [address] Dr. Nancy Adames Urea nitrogen/Creatinin e [Mass ratio] 18.7 mg/mg Normal [facility] Comment on above: Performed By: #### B MP #### [facility] [address] [place] [address] Dr. Nancy Adames PROTIMEon 07-10-2021 INR Coag (PPP) [Relative time] 1.02 {INR} Normal [facility] Comment on above: Performed By: #### P T, PTT #### [facility] [address] [place] [address] Dr. Nancy Adames INR GUIDELINES SEE BELOW Normal [facility] Comment on above: Result Comment: MICHAEL RED INR: 2.0 - 3.0 CONDITIONS NOT LISTED BELOW 2.5 - 3.5 FOR PROSTHETIC HEART VALVE REPLACEMENT 2.5 - 3.5 RECURRENT THROMBOSIS Performed By: #### P T, PTT #### [facility] [address] [place] [address] Dr. Nancy Adames PT Coag (PPP) [Time] 11.0 s Normal 9.0-11.6 [facility] Comment on above: Performed By: #### P T, PTT #### [facility] [address] [place] [address] Dr. Nancy Adames PTTon 07-10-2021 aPTT Coag (Bld) [Time] 27.4 s Normal 22.3-36.2 [facility] Comment on above: Performed By: #### P T, PTT #### [facility] [address] [place] [address] LUNG CANCER SCREENINGon [...] by: CONCEPCION BORJA Date: 2021-04-17 17:09 Normal [facility] Vital Signs Date Time Vital Sign Value Performing Clinician Elton toro 09-15-2021 14:15-0500 Body height 160.02 cm Kenny Olexa Other [facility] Other 09-15-2021 14:15-0500 Body mass index (BMI) [Ratio] 43.4 kg/m2 Kenny Olexa Other [facility] Other 09-15-2021 14:15-0500 Body weight 111.13 kg Kenny Olexa Other [facility] Other 07-01-2021 14:30-0500 Body height 160.02 cm Kenny Olexa Other [facility] Other 07-01-2021 14:30-0500 Body mass index (BMI) [Ratio] 43.4 kg/m2 Kenny Olexa Other [facility] Other 07-01-2021 14:30-0500 Body weight 111.13 kg Kenny Olexa Other [facility] Other 04-24-2021 15:30-0400 Body height 160.02 cm Kenny Olexa Other [facility] Other 04-24-2021 15:30-0400 Body mass index (BMI) [Ratio] 43.4 kg/m2 Kenny Olexa Other [facility] Other 04-24-2021 15:30-0400 Body weight 111.13 kg Kenny Olexa Other [facility] Other Encounters Encounter Date Encounter Type Care Provider Facility Start: 07-07-2023 End: 07-07-2023 ambulatory SHAIKH DARREN Not Available Start: 02-01-2023 End[facility]: 02-02-2022 End: 02-03-2022 ambulatory SHAIKH Shaheen BANKS Facility:[facility] Start: 09-15-2021 End: 09-15-2021 ambulatory Kenny Ibanezxa Other [facility] Other Start: 09-15-2021 Postop follow up vis it related to original px Kenny Olexa [facility] Start: 08-28-2021 End: 08-28-2021 ambulatory VALERI LONG [place] [facility] Other Start: 08-28-2021 Telephone encounter Kenny Shamarxa [facility] Start: 08-26-2021 Encounter for preprocedural laboratory examination KENNY IBANEZXA [facility] Start: 08-25-2021 End: 08-26-2021 ambulatory KENNY SHAMARXA Facility:[facility] Start: 08-25-2021 End: 08-26-2021 Encounter for preprocedural laboratory examination KENNY IBANEZXA Facility:[facility] Start: 08-06-2021 End: 08-06-2021 ambulatory Kenny Olexa Other [facility] Other Start: 08-06-2021 Telephone encounter Kenny Ibanezxa [facility] Start: 07-29-2021 End: 07-29-2021 ambulatory Kenny Olexa Other [facility] Other Start: 07-29-2021 Postop follow up vis it related to original px Kenny Olexa [facility] Start: 07-20-2021 Encounter for other preprocedural examination KENNY IBANEZXA [facility] Start: 07-20-2021 Encounter for preprocedural cardiovascular examination KENNY IBANEZSUSHILA [facility] Start: 07-15-2021 End: 07-15-2021 ambulatory ODELL GAY Facility:[facility] Start: 07-14-2021 End: 07-14-2021 ambulatory Kenny Olexa Other [facility] Other Start: 07-14-2021 Telephone encounter Kenny Olexa [facility] Start: 07-10-2021 End: 07-11-2021 ambulatory ALEX TORRES Facility:[facility] Start: 07-01-2021 End: 07-01-2021 ambulatory Kenny Olexa Other [facility] Other Start: 07-01-2021 Encounter for other preprocedural examination Kenny Olexa [facility] [place] Start: 07-01-2021 Office outpatient vi sit 25 minutes Kenny Olexa [facility] [place] Start: 04-24-2021 End: 04-25-2021 ambulatory KENNY OLEXA Facility:[facility] Start: 04-24-2021 Encounter for other preprocedural examination Kenny Olexa [facility] [place] Start: 04-24-2021 Office outpatient ne w 45 minutes Kenny Olexa [facility] [place] Start: 04-17-2021 End: 04-18-2021 ambulatory PINA H DARREN Facility:[facility] Start: 01-04-2018 End: 01-05-2018 Ambulatory DEFAULT PHYSICIAN Facility:[facility] Start: 12-09-2017 End: 12-10-2017 Ambulatory DEFAULT PHYSICIAN Facility:[facility] Payers Date Payer Category Payer Private Health Insurance [id number] 1960 Unknown [id number] 1960 Unknown [id number] 1960 Unknown [id number] 2.16.84 [id number] 1960 Unknown [id number] 2.16.84 [id number] 1960 Unknown [id number] 2.16.84 [id number] 1960 Unknown [id number] 2.16.84 [id number] 1960 Unknown [id number] 2.16.84 [id number] 1960 Unknown [id number] Unknown Social History Date Type Detail Facility Sex Assigned At [facility] Other Clinical Notes 04-24-2021 to 02-01-2023 Note [...] for this visit: Coronary artery disease involving [place] coronary artery of [place] heart without angina pectoris Hx of non-ST [...] monitor for cor (more content not included)... [facility] Note PROCEDURE: XR KNEE L T [...] authenticated by: CONCEPCION BORJA Date: 2022-02-03 16:13 [facility] 09-15-2021 Evaluation note Encounter Date Diagnosis Assessment [...] for removal of sutures (ICD-10 - Z48.02) [facility] Other 02-10-2022 NoteOPERATIVE NOTE ADDENDUM PROCEDURE: The addendum is that it is a right carpal tunnel. The note was dictated, but needs right carpal tunnel added as the name of the procedure.[id number] note* Encounter Date Diagnosis Assessment Notes Treatment Notes Treatment Clinical Notes Aug, Other specified postprocedural states (ICD-10 - Z98.890) [facility] Other 01-11-2022 Evaluation note* Encounter Date Diagnosis [...] remova l of sutures (ICD-10 - Z48.02) [facility] Other 12-27-2021 Evaluation note* Encounter Date Diagnosis Assessment Notes Treatment Notes Treatment Clinical Notes Jun, Other specified postprocedural states (ICD-10 - Z98.890) [facility] Other 12-14-2021 Evaluation note* Encounter Date Diagnosis [...] Carpal tunnel syndrome, right (ICD-10 - G56.01) [facility] Other 10-08-2021 NotePROCEDURE: XR HAND LT MIN [...] Electronically authenticated by: CONCEPCION BORJA Date: 2021-04-25 07:26[facility]10-07-2021 Evaluation note* Encounter Date Diagnosis Assessment Notes [...] M79.642) Apr, Pre-op exam (ICD-10 - Z01.818) [facility] Other Evaluation noteNo InformationNortZyme [employer] Other History general Narrative - Reported* Type Description Date Medical History acid reflux Medical History high blood pressure Surgical History heart stent Hospitalization History See Above [facility] Other History general Narrative - ReportedNo[employer] Other History general Narrative - Reported* Type Description Date Medical History acid reflux Medical History high blood pressure Surgical History heart stent Surgical History right carpal tunnel release Surgical History left carpal tunnel release Hospitalization History See Above [facility] Other Summary Purpose Family History No Family [...] and content) DATE CREATED AUTHOR 01/05/2018 [facility] DATE CREATED AUTHOR AUTHOR'S ORGANIZ ATION 02/06/2022 [facility] DATE CREATED AUTHOR AUTHOR'S ORGANIZ ATION 02/01/2023 [facility] DATE CREATED AUTHOR AUTHOR'S ORGANIZ ATION 07/09/2023 [facility] EPIC REASON FOR VISIT (unrecogniz [...] BE BASED ON THE PRIMARY CLINICAL RECORDS. [employer] provides no warranty or guarantee of the accuracy or completeness of information in this document.
== END 2023-09-08 10:26 | disposition home or self-care (01) ==
LOC: EC 10:26
PROVIDERS: PCP Internal Medicine; Visit Provider Podiatrist Foot & Ankle Surgery
DX: M25.572 Pain in left ankle and joints of left foot (principal); S89.30 Unspecified physeal fracture of lower end of fibula
CPT/HCPCS: 73610

== ENCOUNTER 2023-10-27 10:48 | Outpatient (OUT) | payer OTHER, SELFPAY ==
--- NOTE | 2023-10-27 | XR_ITS ---
The [address] [address] Patient Name: ZULLY MAGALLON MRN: [id number] date: 1960 Sex: M Assigned Patient Location: Current Patient Location: Accession/Order Number: [id number] Exam Date: 10/27/2023 10:54 Report Date: 10/27/2023 15:44 At the request of: ESTEBAN THAKUR Procedure: XR ankle LT min 3V PROCEDURE: XR ankle LT min 3V COMPARISON: 09/08/2023 HISTORY: LEFT ANKLE PAIN FINDINGS: BONES:Stable oblique fracture distal fibular metaphysis with significant increase in bony bridging. No new fracture. Moderate enthesopathic spurring the calcaneus at the Achilles and plantar insertions SOFT TISSUES:Negative. No visible soft tissue swelling. EFFUSION:None visible. OTHER: Negative. XR/XR ankle LT min 3V IMPRESSION: Continued healing of the distal fibular fracture Electronically authenticated by: KOREY DOSHI Date: 10/27/2023 15:44
== END 2023-10-27 10:49 | disposition home or self-care (01) ==
LOC: EC 10:48
PROVIDERS: PCP Internal Medicine; Visit Provider Podiatrist Foot & Ankle Surgery
DX: M25.572 Pain in left ankle and joints of left foot (principal); S89.302D Unspecified physeal fracture of lower end of left fibula, subsequent encounter for fracture with routine healing
CPT/HCPCS: 73610

== ENCOUNTER 2024-01-11 08:48 | Outpatient (OUT) | payer OTHER, SELFPAY ==
--- NOTE | 2024-01-11 | XR_ITS ---
The [address] [address] Patient Name: ZULLY MAGALLON MRN: [id number] date: 1960 Sex: M Assigned Patient Location: Current Patient Location: Accession/Order Number: [id number] Exam Date: 01/11/2024 08:50 Report Date: 01/11/2024 09:42 At the request of: ESTEBAN THAKUR Procedure: XR ankle LT min 3V PROCEDURE: XR ankle LT min 3V COMPARISON: 10/27/2023 HISTORY: LEFT ANKLE PAIN FINDINGS: BONES:Continued healing of a stable distal fibular fracture with increase in bony bridging. No new fracture or dislocation. Moderate enthesopathic spurring of the calcaneus at the Achilles and plantar insertions SOFT TISSUES:Negative. No visible soft tissue swelling. EFFUSION:None visible. OTHER: Negative. XR/XR ankle LT min 3V IMPRESSION: Continued healing stable distal fibular fracture Electronically authenticated by: KOREY DOSHI Date: 01/11/2024 09:42
--- OUTSIDE RECORDS SUMMARY | 2024-01-11 08:52 | XMS_ITS ---
Patient Summarization (C-CDA 2.1 CCD) Created on: January 11, 2024 BRENDEN MAGALLON : 1960 Sex: Male Author Organization Sample organization Care Team Providers Care Branch Account Manager Name Role Phone PHYSICIAN, DEFAULT Unavailable Unavailable [...] Unavailable FAWWAD, PINA H Primary Care Unavailable ZIEBER, DR CONCEPCION [employer] Unavailable FAWWAD, PINA H Consulting Unavailable OLEXA, KENNY Admitting Unavailable FAWWAD, PINA H Primary Care Unavailable ZIEBER, DR CONCEPCION [employer] Unavailable OLEXA, KENNY Attending Unavailable OLEXA, KENNY Consulting Unavailable OLEXA, KENNY Consulting Unavailable FAWWAD, PINA H Primary Care Unavailable OLEXA, KENNY Admitting Unavailable OLEXA, KENNY Attending Unavailable FAWWAD, PINA H Admitting Unavailable ZIEBER, DR CONCEPCION [employer] Unavailable FAWWAD, PINA H Attending Unavailable FAWWAD, PINA H Primary Care Unavailable FAWWAD, PINA H Consulting Unavailable ALEX TORRES Consulting Unavailable FAWWAD, PINA H Primary Care Unavailable OLEXA, KENNY Admitting Unavailable OLEXA, KENNY Attending Unavailable OLEXA, KENNY Consulting Unavailable MK DENTON Attending Unavailable FAWWAD, PINA Attending Unavailable Encounters Encounter Date Encounter Type Care Provider Facility Start: 07-07-2023 End: 07-07-2023 ambulatory SHAIKH DARREN Not Available Start: 02-01-2023 End: 02-01-2023 [facility] Start: 02-02-2022 End: 02-03-2022 ambulatory SHAIKH Shaheen BANKS Facility:[facility] Start: 09-15-2021 End: 09-15-2021 ambulatory Kenny Thomas Other [facility] Start: 09-15-2021 Postop follow up vis it related to original px Kenny Olexa [facility] Start: 08-28-2021 End: 08-28-2021 ambulatory VALERI LEON [facility] Start: 08-28-2021 Telephone encounter Kenny Shamarxa [facility] Start: 08-26-2021 Encounter for preprocedural laboratory examination KENNY HERRERAXA [facility] Start: 08-25-2021 End: 08-26-2021 ambulatory KENNY SHAMARXA Facility:[facility] Start: 08-25-2021 End: 08-26-2021 Encounter for preprocedural laboratory examination KENNY HERRERAXA Facility:[facility] Start: 08-06-2021 End: 08-06-2021 ambulatory Kenny Olexa Other [facility] Start: 08-06-2021 Telephone encounter Kenny Herreraxa [facility] Start: 07-29-2021 End: 07-29-2021 ambulatory Kenny Olexa Other [facility] Start: 07-29-2021 Postop follow up vis it related to original px Kenny Olexa [facility] [place] Start: 07-20-2021 Encounter for other preprocedural examination KENNY HERRERAXA [facility] Start: 07-20-2021 Encounter for preprocedural cardiovascular examination KENNY SHAMARXA [facility] Start: 07-15-2021 End: 07-15-2021 ambulatory ODELL GAY Facility:[facility] Start: 07-14-2021 End: 07-14-2021 ambulatory Kenny Olexa Other [facility] Start: 07-14-2021 Telephone encounter Kenny Thomas [facility] Start: 07-10-2021 End: 07-11-2021 ambulatory ALEX TORRES Facility:[facility] Start: 07-01-2021 End: 07-01-2021 ambulatory Kenny Thomas Other [facility] Start: 07-01-2021 Encounter for other preprocedural examination Kenny Thomas [facility] [place] Start: 07-01-2021 Office outpatient vi sit 25 minutes Kenny Herreraxa [facility] [place] Start: 04-24-2021 End: 04-25-2021 ambulatory KENNY THOMAS Facility:[facility] Start: 04-24-2021 Encounter for other preprocedural examination Kenny Herreraxa [facility] [place] Start: 04-24-2021 Office outpatient ne w 45 minutes Kenny Herreraxa [facility] [place] Start: 04-17-2021 End: 04-18-2021 ambulatory PINA Shaheen DARREN Facility:[facility] Start: 01-04-2018 End: 01-05-2018 Ambulatory DEFAULT PHYSICIAN Facility:[facility] Start: 12-09-2017 End: 12-10-2017 Ambulatory DEFAULT PHYSICIAN Facility:[facility] Medications Current Medications Medication Drug Class(es) Dates [...] Multivitamin preparation (7 sources) Multivitamin Act [place] 3 (7 sources) [place] 3 Active omeprazole 20 mg delayed release oral capsule (7 sources) Proton Pump Inhibitor take 1 capsule by mouth once daily Omeprazole 20 MG 1 capsule 30 minutes before morning meal Orally Once a day Active Payers Date Payer Category Payer Private Health Insurance [id number] 1960 Unknown [id number] 2.16.84 [id number] 1960 Unknown [id number] 2.16.84 [id number] 1960 Unknown [id number] 2.16.84 [id number] 1960 Unknown [id number] 2.16.84 [id number] 1960 Unknown [id number] 2.16.84 [id number] 1960 Unknown [id number] 2.16.84 [id number] 1960 Unknown [id number] 2.16.84 [id number] 1960 Unknown [id number] Unknown Problems Active Problems Problem Classification Problem Date Documented Date Episodic/Chronic Coronary atherosclerosis and other heart disease (6 sources) Old myocardial infarction; Translations: [Atherosclerotic heart disease of [place] coronary artery without angina pectoris] Onset: 09-30-2021 [...] Resolved: 09-15-2021 Episodic Other aftercare (1 source) detention (current) use of aspirin; Translations: [LEG BREAKER CURRENT USE OF ASPIRIN] Onset: 08-26-2021 Episodic Other aftercare (1 source) Other group home (current) drug therapy; Translations: [OTH LEG BREAKER CURRENT DRUG THERAPY] Onset: 08-26-2021 Episodic Other aftercare (1 source) termite control representative (current) use of anticoagulants; Translations: [LEG BREAKER CURRNT USE ANTICOAGULANTS] Onset: 07-20-2021 Episodic Other [...] Facil ity Office Visiton 02-01-2023 Follow-up visit [id number] Brenden Magallon 1960 M Date Provider Department Center 02/01/2023 [id number] DENTON [facility] No family history on file Level of Service:50586 SC OFFICE/OUTPATIENT ESTABLISHED MOD MDM 30-39 MIN Reason for Visit and Comments: Follow-up [406674] - 1 yr. Follow up Normal [facility] Covid-19 PCR (CVD[facility])on SARS-CoV-2 (COVID-19) RNA VJ+probe Ql (Unsp spec) Not detected Normal NOT DETECTED [facility] Comment on above: Result Comment: This test is not yet approved or cleared by the [place] FDA. When there are no FDA-approved or cleared tests available, and other criteria are met, FDA can make tests available under an emergency access mechanism called an Emergency Use Authorization (EUA). The EUA for this test is supported by the [place] of Health and Human Service's (HHS's) declaration [...] SARS-CoV-2. Performed By: #### C VDTB #### [facility] [address] [place] [address] Dr. Nancy Adames CBC AUTO DIFFon 07-10-2021 BASO # 0.0 103/ul Normal 0.0-0.1 [facility] Comment on above: Performed By: #### C BC #### [facility] [address] [place] [address] Dr. Nancy Adames Basophils/100 WBC (Bld) 0.3 % Normal 0.2-2.0 [facility] Comment on above: Performed By: #### C BC #### [facility] [address] [place] [address] Dr. Nancy Adames EO # 0.2 103/ul Normal 0.0-0.7 [facility] Comment on above: Performed By: #### C BC #### [facility] [address] [place] [address] Dr. Nancy Adames Eosinophils/100 WBC (Bld) 2.3 % Normal 0.9-7.0 [facility] Comment on above: Performed By: #### C BC #### [facility] [address] [place] [address] Dr. Nancy Adames Erythrocyte distribution width (RBC) [Ratio] 12.8 % Normal 11.0-15.0 [facility] Comment on above: Performed By: #### C BC #### [facility] [address] [place] [address] Dr. Nancy Adames Hematocrit (Bld) [Volume fraction] 44.4 % Normal 42.0-54.0 [facility] Comment on above: Performed By: #### C BC #### [facility] [address] [place] [address] Dr. Nancy Adames Hemoglobin (Bld) [Mass/Vol] 14.0 g/dL Normal 14.0-18.0 [facility] Comment on above: Performed By: #### C BC #### [facility] [address] [place] [address] Dr. Nancy Adames IG # 0.02 10e3/ul Normal 0.00-0.03 [facility] Comment on above: Performed By: #### C BC #### [facility] [address] [place] [address] Dr. Nancy Adames IG % 0.3 % Normal 0.0-0.5 [facility] Comment on above: Performed By: #### C BC #### [facility] [address] [place] [address] Dr. Nancy Adames LYMPH # 2.9 103/ul Normal 1.2-3.8 [facility] Comment on above: Performed By: #### C BC #### [facility] [address] [place] [address] Dr. Nancy Adames Lymphocytes/100 WBC (Bld) 37.5 % Normal 20.5-60.0 [facility] Comment on above: Performed By: #### C BC #### [facility] [address] [place] [address] Dr. Nancy Adames MANUAL DIFF REQ NO Normal [facility] Comment on above: Performed By: #### C BC #### [facility] [address] [place] [address] Dr. Nancy Adames MCH (RBC) [Entitic mass] 27.6 pg Normal 25.9-34.0 [facility] Comment on above: Performed By: #### C BC #### [facility] [address] [place] [address] Dr. Nancy Adames MCHC (RBC) [Mass/Vol] 31.5 g/dL Normal 29.9-35.2 [facility] Comment on above: Performed By: #### C BC #### [facility] [address] [place] [address] Dr. Nancy Adames MCV (RBC) [Entitic vol] 87.6 fL Normal 80.0-94.0 [facility] Comment on above: Performed By: #### C BC #### [facility] [address] [place] [address] Dr. Nancy Adames MONO # 0.9 103/ul Critically high 0.3-0.8 [facility] Comment on above: Performed By: #### C BC #### [facility] [address] [place] [address] Dr. Nancy Adames Monocytes/100 WBC (Bld) 11.6 % Normal 1.7-12.0 [facility] Comment on above: Performed By: #### C BC #### [facility] [address] [place] [address] Dr. Nancy Adames NEUT # 3.8 103/ul Normal 1.4-6.5 [facility] Comment on above: Performed By: #### C BC #### [facility] [address] [place] [address] Dr. Nancy Adames Neutrophils/100 WBC (Bld) 48.0 % Normal 43.0-75.0 [facility] Comment on above: Performed By: #### C BC #### [facility] [address] [place] [address] Dr. Nancy Adames Platelet mean volume (Bld) [Entitic vol] 9.0 fL Critically low 9.5-13.5 [facility] Comment on above: Performed By: #### C BC #### [facility] [address] [place] [address] Dr. Nancy Adames PLT 246 103/ul Normal 150-450 [facility] Comment on above: Performed By: #### C BC #### [facility] [address] [place] [address] Dr. Nancy Adames RBC 5.07 106/ul Normal 4.70-6.10 [facility] Comment on above: Performed By: #### C BC #### [facility] [address] [place] [address] Dr. Nancy Adames WBC 7.8 103/ul Normal 4.0-11.0 [facility] Comment on above: Performed By: #### C BC #### [facility] [address] [place] [address] Dr. Nancy Adames Covid-19 PCR ([facility])on 06-19 SARS-CoV-2 (COVID-19) RNA VJ+probe Ql (Unsp spec) Not detected Normal NOT DETECTED [facility] Comment on above: Result Comment: This test is not yet approved or cleared by the [place] FDA. When there are no FDA-approved or cleared tests available, and other criteria are met, FDA can make tests available under an emergency access mechanism called an Emergency Use Authorization (EUA). The EUA for this test is supported by the [place] Manager of Health and Human Service's (HHS's) declaration [...] SARS-CoV-2. Performed By: #### C VDTB #### [facility] [address] [place] [address] Dr. Nancy Adames PROF CHEM 8 (BAS METB)on Anion gap [Moles/Vol] 10.1 mmol/L Normal [facility] Comment on above: Performed By: #### B MP #### [facility] [address] [place] [address] Dr. Nancy Adames Calcium [Mass/Vol] 9.2 mg/dL Normal 8.4-10.2 [facility] Comment on above: Performed By: #### B MP #### [facility] [address] [place] [address] Dr. Nancy Adames Chloride [Moles/Vol] 104 mmol/L Normal 98-107 [facility] Comment on above: Performed By: #### B MP #### [facility] [address] [address] [address] Nancy Adames CO2 [Moles/Vol] 31.1 mmol/L Critically high 22.0-30.0 [facility] Comment on above: Performed By: #### B MP #### [facility] [address] [address] [address] Nancy Adames Creatinine [Mass/Vol] 0.91 mg/dL Normal 0.66-1.25 [facility] Comment on above: Performed By: #### B MP #### [facility] [address] [address] [address] Nancy Adames EGFR-AF SURINAMESE >60 Normal >=60 [facility] Comment on above: Performed By: #### B MP #### [facility] [address] [address] [address] Nancy Adames EGFR-NON AF SURINAMESE >60 Normal >=60 [facility] Comment on above: Performed By: #### B MP #### [facility] [address] [address] [address] Nancy Adames Glucose [Mass/Vol] 111 mg/dL Critically high 74-106 [facility] Comment on above: Performed By: #### B MP #### [facility] [address] [address] [address] Nancy Adames Potassium [Moles/Vol] 4.2 mmol/L Normal 3.4-5.0 [facility] Comment on above: Performed By: #### B MP #### [facility] [address] [address] [address] Nancy Adames Sodium [Moles/Vol] 141 mmol/L Normal 137-145 [facility] Comment on above: Performed By: #### B MP #### [facility] [address] [address] [address] Nancy Adames Urea nitrogen [Mass/Vol] 17.0 mg/dL Normal 9.0-20.0 [facility] Comment on above: Performed By: #### B MP #### [facility] [address] [address] [address] Nancy Adames Urea nitrogen/Creatinin e [Mass ratio] 18.7 mg/mg Normal [facility] Comment on above: Performed By: #### B MP #### [facility] [address] [place] [address] Dr. Nancy Adames PROTIMEon 07-10-2021 INR Coag (PPP) [Relative time] 1.02 {INR} Normal [facility] Comment on above: Performed By: #### P T, PTT #### [facility] [address] [place] [address] Dr. Nancy Adames INR GUIDELINES SEE BELOW Normal [facility] Comment on above: Result Comment: MICHAEL RED INR: 2.0 - 3.0 CONDITIONS NOT LISTED BELOW 2.5 - 3.5 FOR PROSTHETIC HEART VALVE REPLACEMENT 2.5 - 3.5 RECURRENT THROMBOSIS Performed By: #### P T, PTT #### [facility] [address] [place] [address] Dr. Nancy Adames PT Coag (PPP) [Time] 11.0 s Normal 9.0-11.6 [facility] Comment on above: Performed By: #### P T, PTT #### [facility] [address] [place] [address] Dr. Nancy Adames PTTon 07-10-2021 aPTT Coag (Bld) [Time] 27.4 s Normal 22.3-36.2 [facility] Comment on above: Performed By: #### P T, PTT #### [facility] [address] [place] [address] LUNG CANCER SCREENINGon [...] by: CONCEPCION BORJA Date: 2021-04-17 17:09 Normal [facility] Social History Date Type Detail Facility Sex Assigned At [facility] Other Vital Signs Date Time Vital Sign Value Performing Clinician Faci lity 09-15-2021 14:15-0500 Body height 160.02 cm Kenny Olexa Other [facility] 09-15-2021 14:15-0500 Body mass index (BMI) [Ratio] 43.4 kg/m2 Kenny Olexa Other [facility] 09-15-2021 14:15-0500 Body weight 111.13 kg Kenny Olexa Other [facility] Other 07-01-2021 14:30-0500 Body height 160.02 cm Kenny Olexa Other [facility] Other 07-01-2021 14:30-0500 Body mass index (BMI) [Ratio] 43.4 kg/m2 Kenny Olexa Other [facility] Other 07-01-2021 14:30-0500 Body weight 111.13 kg Kenny Olexa Other [facility] Other 04-24-2021 15:30-0400 Body height 160.02 cm Kenny Olexa Other [facility] Other 04-24-2021 15:30-0400 Body mass index (BMI) [Ratio] 43.4 kg/m2 Kenny Thomas Other [facility] Other 04-24-2021 15:30-0400 Body weight 111.13 kg Kenny Thomas Other [facility] Other Clinical Notes 04-24-2021 to 02-01-2023 Note Date & Type Note Facility 02-01-2023 Note Cardiology Clinic No te Subjective Brenden Magallon is a 62 y.o. year old male patient past medical history of coronary artery disease status post PCI to mid LAD in 2006, hyperlipidemia, hypertension, and tobacco dependence seen in follow-up. Patient Active Problem List Diagnosis Tobacco dependence syndrome Dyspnea Coronary arteriosclerosis No family history on file. Social History Tobacco Use Smoking status: Every Day Types: Cigarettes Smokeless tobacco: Never HPI Mr Magallon is a 22 yo man with history [...] for this visit: Coronary artery disease involving [place] coronary artery of [place] heart without angina pectoris Hx of non-ST [...] monitor for cor (more content not included)... [facility] 02-03-2022 Note PROCEDURE: XR KNEE L [...] authenticated by: CONCEPCION BORJA Date: 2022-02-03 16:13 [facility] 09-15-2021 Evaluation note Encounter Date Diagnosis Assessment [...] for removal of sutures (ICD-10 - Z48.02) [facility] Other 02-10-2022 NoteOPERATIVE NOTE ADDENDUM PROCEDURE: The addendum is that it is a right carpal tunnel. The note was dictated, but needs right carpal tunnel added as the name of the procedure.[id number]* Encounter Date Diagnosis Assessment Notes Treatment Notes Treatment Clinical Notes Aug, Other specified postprocedural states (ICD-10 - Z98.890) [facility] Other 01-11-2022 Evaluation note* Encounter Date Diagnosis [...] remova l of sutures (ICD-10 - Z48.02) [facility] Other 12-27-2021 Evaluation note* Encounter Date Diagnosis Assessment Notes Treatment Notes Treatment Clinical Notes Jun, Other specified postprocedural states (ICD-10 - Z98.890) [facility] Other 12-14-2021 Evaluation note* Encounter Date Diagnosis [...] Carpal tunnel syndrome, right (ICD-10 - G56.01) [facility] Other 10-08-2021 NotePROCEDURE: XR HAND LT MIN [...] Electronically authenticated by: CONCEPCION BORJA Date: 2021-04-25 07:26[facility]10-07-2021 Evaluation note* Encounter Date Diagnosis Assessment Notes [...] M79.642) Apr, Pre-op exam (ICD-10 - Z01.818) [facility] Other Evaluation noteNo InformationNortBeMe [employer] Other History general Narrative - Reported* Type Description Date Medical History acid reflux Medical History high blood pressure Surgical History heart stent Hospitalization History See Above [facility] Other History general Narrative - ReportedNoGigaMedia Other History general Narrative - Reported* Type Description Date Medical History acid reflux Medical History high blood pressure Surgical History heart stent Surgical History right carpal tunnel release Surgical History left carpal tunnel release Hospitalization History See Above [facility] Other Summary Purpose Family History No Family [...] and content) DATE CREATED AUTHOR 01/05/2018 [facility] DATE CREATED AUTHOR AUTHOR'S ORGANIZ ATION 02/06/2022 [facility] DATE CREATED AUTHOR AUTHOR'S ORGANIZ ATION 02/01/2023 [facility] DATE CREATED AUTHOR AUTHOR'S ORGANIZ ATION 07/09/2023 [facility] EPIC REASON FOR VISIT [...] BE BASED ON THE PRIMARY CLINICAL RECORDS. [employer] provides no warranty or guarantee of the accuracy or completeness of information in this document.
== END 2024-01-11 08:49 | disposition home or self-care (01) ==
LOC: EC 08:48
PROVIDERS: PCP Internal Medicine; Visit Provider Podiatrist Foot & Ankle Surgery
DX: M25.572 Pain in left ankle and joints of left foot (principal); S89.392D Other physeal fracture of lower end of left fibula, subsequent encounter for fracture with routine healing
CPT/HCPCS: 73610

== ENCOUNTER 2025-02-20 12:40 | Outpatient (OUT) | payer OTHER, SELFPAY ==
--- NOTE | 2025-02-20 12:51 | CT_ITS ---
[address] [address] Patient Name: ZULLY MAGALLON MRN: [id number] date: 1960 Sex: M Assigned Patient Location: CT Current Patient Location: CT Accession/Order Number: [id number] Exam Date: 02/20/2025 13:21 Report Date: 02/20/2025 13:23 At the request of: MILE CHANG Procedure: CT lung screening low-dose CT CHEST WITHOUT CONTRAST, LOW DOSE SCREENING: CLINICAL DATA: A 64-year old current smoker COMPARISON: CT chest 04/17/2021 TECHNIQUE: Noncontrast axial CT scan images of the chest were obtained under the low dose screening CT protocol. Coronal and sagittal reconstructed images were also submitted. FINDINGS: Mediastinum : Suboptimal evaluation due to low-dose technique. Thoracic aorta appears normal in caliber. Pulmonary trunk appears nondilated. No pericardial effusion. No lymphadenopathy. The esophagus is grossly unremarkable. Lungs: No focal consolidation, pneumothorax or pleural effusion. Trachea and distal airways appear patent. Emphysema. Diffuse bronchial wall thickening. Mild lung scarring. Calcified granuloma. No suspicious noncalcified pulmonary nodule or mass. Upper abdomen: No acute findings. Bony thorax and chest wall: Soft tissues surrounding the chest wall demonstrate no acute findings. Osseous structures demonstrate degenerative change. CT/CT lung screening low-dose IMPRESSION: NO SUSPICIOUS PULMONARY NODULE. LUNG - RADS Version 1.0 Assessment: Category 1, Negative (No nodules and definitely benign nodules). Management: Continue annual lung screening with LDCT in 12 months. Impression dictated by: Percy Johnston Jr., D.O. 02/20/2025 1:23 PM Dictation Location: [employer] Electronically authenticated by: [id number] Y Date: 02/20/2025 13:23
== END 2025-02-20 12:41 | disposition home or self-care (01) ==
LOC: CT 12:45
PROVIDERS: PCP Nurse Practitioner Family; Visit Provider Nurse Practitioner Family
DX: F17.210 Nicotine dependence, cigarettes, uncomplicated (principal); F17.200 Nicotine dependence, unspecified, uncomplicated; Z12.2 Encounter for screening for malignant neoplasm of respiratory organs
CPT/HCPCS: 71271